=== PATIENT | male | born 1990 | race Caucasian/White ===

== ENCOUNTER 2022-04-23 15:15 | Emergency (ER) | payer OTHER, SELFPAY ==
[2022-04-23 15:25] VITALS: BP 173/95; PULSE 78; O2SAT 99
[2022-04-23 15:26] VITALS: BP 173/95; PULSE 84; RESP 18; TEMP 36.6; O2SAT 98; BMI 22.3
--- NOTE | 2022-04-23 15:27 | DI.RAD.S_ITS ---
PROCEDURE: XR HAND LT MIN 3V INDICATIONS: laceration TECHNIQUE: 3 views of the hand(s) acquired. COMPARISON: None. FINDINGS: Bones: No focal bony abnormality can be seen involving the 2nd finger. No fractures or dislocations are seen elsewhere. Carpal bones are normally aligned. No suspicious bony lesions. Soft tissues: Soft tissue laceration can be seen involving the distal tip of the index finger, with irregularity and bandaging material. No radiopaque foreign bodies are seen. IMPRESSION: Soft tissue abnormality of the 2nd finger, without associated foreign body or grzegorz bony abnormality. Dictated by: Sree Zendejas M.D. on 04/23/2022 at 15:05 Approved by: Sree Zendejas M.D. on 04/23/2022 at 15:06
[2022-04-23 15:30] VITALS: BP 150/81; PULSE 85; O2SAT 98
[2022-04-23] MEDS: LIDOCAINE 1% W/EPI 1 ML SUBCUT (15:59)
[2022-04-23 16:00] VITALS: BP 162/77; PULSE 75; O2SAT 99
[2022-04-23] MEDS: TRANEXAMIC ACID 1,000 MG VIAL 1000 MG TOP (16:24)
[2022-04-23 16:30] VITALS: BP 144/79; PULSE 78; O2SAT 98
--- NOTE | 2022-04-23 16:51 | ED_ITS ---
HPI - Wound/Laceration <IZABELLA Henderson Last Filed: 04/23/22 17:03> General Chief Complaint: Wound/Laceration Stated Complaint: left index finger cut Time Seen by Provider: 04/23/22 15:27 Source: patient Mode of arrival: Ambulatory History of Present Illness HPI narrative: This is a 31-year-old male presenting emergency department due to a left 2nd finger laceration onset just prior to arrival. Patient states that he was cooking when he cut himself with a sharp knife. Tetanus is up-to-date. Denies any changes in range of motion at the distal tip. Denies any fevers, numbness, or any other concerning signs or symptoms. Review of Systems <IZABELLA Henderson Last Filed: 04/23/22 17:03> Review of Systems Narrative: GENERAL: Denies chills, fatigue, malaise, fever, sweats. HEENT: Denies sinus pain, ear pain, sore throat, difficulty swallowing, dizziness. RESPIRATORY: Denies dyspnea, cough, wheezing, hemoptysis, sputum. CARDIOVASCULAR: Denies chest pain, palpitations, orthopnea, edema, GASTROINTESTINAL: Denies nausea, vomiting, abdominal pain, diarrhea, constipation, melena. : Denies dysuria, frequency, incontinence, hematuria, urinary retention. MUSCULOSKELETAL: Left 2nd finger pain, denies changes in range of motion at the joints SKIN: Laceration to left distal finger NEUROLOGIC: Denies weakness, headache, numbness, change in speech, confusion, seizures, incoordination. PSYCHIATRIC: No concerning psychosocial issues. 12 point review of systems is negative except for those stated above Patient History <IZABELLA Henderson Last Filed: 04/23/22 17:03> Substance Use Type: does not use Exam <IZABELLA Henderson Last Filed: 04/23/22 17:03> Narrative Exam Narrative: GENERAL: Well-developed patient, in mild distress. HEAD: Atraumatic. Normocephalic. EYES: Pupils equal round and reactive. Extraocular motions intact. No scleral icterus. No injection or drainage. ENT: Nose without bleeding, purulent drainage. Throat without erythema, tonsillar hypertrophy or exudate. Airway patent. NECK: Trachea midline. Non tender CARDIOVASCULAR: Regular rate and rhythm without murmurs, gallops, or rubs. RESPIRATORY: Clear to auscultation. Breath sounds equal bilaterally. No wheezes, rales, or rhonchi. GASTROINTESTINAL: Abdomen soft, non-tender, nondistended. EXTREMITIES: No edema or joint tenderness. BACK: Nontender without deformity or crepitance. No flank tenderness. NEURO: AOx3. SKIN: Left 2nd distal phalanx has a circular laceration to the palmar aspect approximately 1.5 cm in diameter. No changes in range of motion at the DIP joint. Minimal active oozing bleeding. Initial Vital Signs Initial Vital Signs: Vital Signs Pulse Rate 78 04/23/22 15:25 Blood Pressure 173/95 H 04/23/22 15:25 Pulse Oximetry 99 04/23/22 15:25 <Shakeel Perla DO - Last Filed: 05/01/22 23:53> Initial Vital Signs Initial Vital Signs: Vital Signs Pulse Rate 78 04/23/22 15:25 Blood Pressure 173/95 H 04/23/22 15:25 Pulse Oximetry 99 04/23/22 15:25 Procedures <IZABELLA Henderson Last Filed: 04/23/22 17:03> Laceration Repair Laceration 1: Time of procedure: 16:56 Site: hand (Palmar aspect of the distal phalanx of left 2nd digit) Size (cm): 1.5 (in diameter) Local Anesthetic: lidocaine 1% Amount of anesthesia used (mL): 4 Skin layer closed with: nylon Skin layer suture size: 5-0 Number of sutures: 7 Technique: simple, interrupted Course <IZABELLA Henderson Last Filed: 04/23/22 17:03> Orders Ordered: Discontinued Medications Lidocaine/Epinephrine (Lidocaine 1% W/Epi) 1 ml SUBCUT NOW ONE Stop: 04/23/22 15:54 Last Admin: 04/23/22 15:59 Dose: 1 ml Documented By: JAZ Tranexamic Acid (Tranexamic Acid 1,000 Mg Vial) 1,000 mg TOP NOW ONE Stop: 04/23/22 16:22 Last Admin: 04/23/22 16:24 Dose: 1,000 mg Documented By: JAZ Vital Signs Vital signs: Vital Signs - 8 hr 04/23/22 15:26 Temperature 97.8 F Pulse Rate 84 Respiratory Rate 18 Blood Pressure 173/95 H Pulse Oximetry 98 Oxygen Delivery Method Room Air <Shakeel Perla DO - Last Filed: 05/01/22 23:53> Orders Ordered: Discontinued Medications Lidocaine/Epinephrine (Lidocaine 1% W/Epi) 1 ml SUBCUT NOW ONE Stop: 04/23/22 15:54 Last Admin: 04/23/22 15:59 Dose: 1 ml Documented By: JAZ Tranexamic Acid (Tranexamic Acid 1,000 Mg Vial) 1,000 mg TOP NOW ONE Stop: 04/23/22 16:22 Last Admin: 04/23/22 16:24 Dose: 1,000 mg Documented By: JAZ Vital Signs Vital signs: Vital Signs - 8 hr 04/23/22 15:26 Temperature 97.8 F Pulse Rate 84 Respiratory Rate 18 Blood Pressure 173/95 H Pulse Oximetry 98 Oxygen Delivery Method Room Air MDM - Wound/Laceration <David Cates PA-C - Last Filed: 04/23/22 17:03> Imaging Data Extremity x-ray #1: Radiologist's Impression: [address] [address] XRay Report Signed Patient: Zen Boyer MR#: [id number] : 1990 Acct:[id number] Age/Sex: 31 / M Date of Service: 04/23/22 Loc: ED Accession Number: [id number] ?? Procedure: XR hand LT min 3V Ordering Provider: David Cates P.A-C PROCEDURE:? XR HAND LT MIN 3V ? INDICATIONS:? laceration ? TECHNIQUE:? 3 views of the hand(s) acquired.? ? COMPARISON:? None. ? FINDINGS:? ? Bones:? No focal bony abnormality can be seen involving the 2nd finger. ? No fractures or dislocations are seen elsewhere.? Carpal bones are normally aligned.? No suspicious bony lesions.? ? Soft tissues:? Soft tissue laceration can be seen involving the distal tip of the index finger, with irregularity and bandaging material.? No radiopaque foreign bodies are seen. ? ? ? IMPRESSION:? Soft tissue abnormality of the 2nd finger, without associated foreign body or grzegorz bony abnormality. ? ? Dictated by: Sree Zendejas M.D. on 04/23/2022 at 15:05 ? ? Approved by: Sree Zendejas M.D. on 04/23/2022 at 15:06 ? MDM Narrative Medical decision making narrative: 31-year-old male presents emergency department with left finger laceration. X- ray shows no evidence of any kind of fracture. No changes in flexion at the DIP joint concerning for tendon injury. Tetanus is up-to-date. Laceration repaired without complications. Advised patient that skin sutured onto finger may fall off but suspect that the wound overall will heal well. Antibiotics prescribed for infection prophylaxis as patient reports the knife being somewhat dirty. Discharge Plan Departure Patient Disposition: Home Clinical Impression: Laceration Instructions: DI for Laceration Repair Activity Restrictions/Additional Instructions: Thank you for coming to the [facility] Emergency Department today. I am glad that we were able to suture up your finger today. As we discussed the skin may fall off but I suspect the skin underneath will heal well without complications. Please take these antibiotics to avoid any kind of infection. The x-ray showed no evidence of any kind of fracture or bony injury. You may return in 7-10 days for re-evaluation and possible suture removal. I hope you feel better soon. Visit Report Forms: Patient Portal/API <Shakeel Perla DO - Last Filed: 05/01/22 23:53> Cosign ED Attending Costitaature Attestation: I was immediately available in the department for consultation. This documentation has been reviewed and I agree with assessment and plan. Supervised by Shakeel Perla DO
[2022-04-23 17:00] VITALS: BP 132/71; PULSE 71; O2SAT 97
== END 2022-04-23 17:13 | disposition home or self-care (01) ==
PROVIDERS: Emergency Provider Physician Assistant Medical
DX: S61.211A Laceration without foreign body of left index finger without damage to nail, initial encounter (principal); W26.0XXA Contact with knife, initial encounter
CPT/HCPCS: 12001; 73130; 99282; 99283